=== PATIENT | male | born 1985 | race Caucasian/White ===

== ENCOUNTER → 2021-10-13 | Day surgery (SDC) | payer OTHER ==
[~2021-10-13] MED LIST: NOHOMEMEDICATIONS
--- NOTE | 2021-10-13 08:10 | H ---
[address] [address] HISTORY AND PHYSICAL Name: DEEJAY ALBERTO [place] [facility] [place] [id number] Admission: Attend Phys: Niurka Escobar MD Discharge: Date of : 83 Report #: [id number] THIS REPORT FOR: cc: LAURA - Mayra family physician/PCP LAURA - No family physician/PCP Nuirka Escobar MD ~ DATE OF SERVICE: 10/13/2021 PREOPERATIVE HISTORY AND PHYSICAL ADMITTING DIAGNOSIS: Lipoma of lower posterior neck. HISTORY OF PRESENT ILLNESS: The patient presented to my office back in August with an enlarging neck mass seeking surgical remedy. He was prepared and was getting ready for surgical removal and he developed a perirectal abscess that was drained successfully and delayed a surgery until this present time and now he is representing for the neck mass. PAST MEDICAL HISTORY: Otherwise, unremarkable. CURRENT MEDICATIONS: Include Valium. PAST SURGICAL HISTORY: Includes two incision and drainage of perirectal abscesses. PHYSICAL EXAMINATION: GENERAL: He is a well-developed, well-nourished male. HEENT: Unremarkable. NECK: Supple, atraumatic. In the posterior portion of the neck, there is a large 10 x 6 mobile mass, which is nontender. LUNGS: Clear. CARDIAC: Regular rate and rhythm. ABDOMEN: Soft. EXTREMITIES: Without pitting edema. IMPRESSION: A benign lipomatous lesion of the neck. I have outlined local surgical excision under general anesthesia for removal with its risks and benefits, I answered his questions. He understands and wishes to proceed. <ELECTRONICALLY SIGNED> By: Niurka Escobar MD 10/13/21 0810 [id number] [id number] Escobar MD /nt
--- NOTE | 2021-10-14 08:56 | OP ---
[address] [address] OPERATIVE REPORT Name: DEEJAY ALBERTO Room: [facility]..#: [id number] Admission: 10/13/21 Attend Phys: Niurka Escobar MD Discharge: Date of : 83 Report #: [id number] THIS REPORT FOR: cc: FAM - No family physician/PCP FAM - No family physician/PCP Niurka Escobar MD ~ DATE OF SURGERY: 10/13/2021 PREOPERATIVE DIAGNOSIS: Posterior neck mass. POSTOPERATIVE DIAGNOSIS: Large lipoma. OPERATIVE PROCEDURE: Excision of a 10 x 6 cm lipoma. ANESTHESIA: Laryngeal mask with 0.5% Marcaine. DESCRIPTION OF PROCEDURE: The patient was placed under laryngeal mask anesthesia, placed in a right lateral decubitus position with the neck exposed and the neck and mass were carefully prepped and draped in a sterile fashion. A time-out was taken, antibiotics were administered. I injected around the lipoma site with 10 mL of the 0.5% Marcaine, made a transverse incision of approximately 5 cm through the skin and subcutaneous fat and entered into a subcutaneous space where a fatty mass was encountered. Using 2 Strauss retractors, I carefully used cautery and countertraction to dissect this lipomatous mass in piecemeal out of the posterior neck. There was small finger projections that were moving laterally that were also extracted out until there was no palpable evidence of any fatty mass in his mid posterior neck. The wound bed was cauterized and when the field was dry, the wound was reapproximated with buried 3-0 PDS sutures and Dermabond ending the operative procedure. Estimated blood loss was 2 mL. Sponge, instrument counts were correct. Specimen sent to pathology. The patient was taken off the laryngeal mask, returned to recovery in satisfactory condition. <ELECTRONICALLY SIGNED> By: Niurka Escobar MD 10/14/21 0856 [id number] Escobar MD /nt
--- NOTE | 2021-10-17 11:21 | PATH ---
[address] [address] PATHOLOGY RPT PROCEDURE Name: DEEJAY ALBERTOER Room: [facility].#: [id number] Admission: 10/13/21 Date of : 83 Discharge: Report #: [id number] Path Case #: [id number] [facility] Accession Number: [id number] . 01 Material submitted: . neck - NECK LIPOMA . 01 Clinical history: . BENIGN LIPOMA NEOPLASM . 02 Diagnosis: Neck lipoma: - Angioliopma. (MARIAM/db; 10/15/2021) LBQ 10/15/2021 1550 Local . 02 Electronically signed: . Dallin Steven MD, Pathologist NPI- [id number] . 01 Gross description: . Fixative: Formalin Labeled: Neck lipoma Specimen received: Multiple previously disrupted fatty irregular tissues Dimensions: 7.5 x 6.0 x 3.9 cm Cut surface: fatty, glistening and unremarkable Private Client Advisor sections are submitted in 4 cassettes. (PALA; 10/14/2021) DKA/DKA 10/14/2021 1150 Local . 02 Pathologist provided ICD-10: D17.0 . 02 CPT . 535772 Specimen Comment: A courtesy copy of this report has been sent to [phone] Specimen Comment: Report sent to Specimen Comment: A duplicate report has been generated due to demographic updates. Performed at: 01 [facility] [id number] [facility] [address], [place], [place] [id number] MD Evaristo Blackmon MD Phone: [phone] Performed at: 02 [facility] [address], [place], [place] [id number] MD Dallin Steven MD Phone: [phone]
== END | disposition home or self-care (01) ==
LOC: M.SUR 09:22
PROVIDERS: ATTEND Surgery
DX: D17.0 Benign lipomatous neoplasm of skin and subcutaneous tissue of head, face and neck (principal); Z98.890 Other specified postprocedural states; Z20.822 Contact with and (suspected) exposure to COVID-19